=== PATIENT | female | born 1995 | race Caucasian/White ===

== ENCOUNTER 2017-08-28 09:43 | Emergency (ER) | payer OTHER ==
[2017-08-28] MEDS ORDERED: Silver Sulfadiazine 1%* 20 GM TOPICAL ONE (10:16)
[2017-08-28] MEDS ORDERED: HYDROcodone/ACETAMIN 5-325 MG* 1 TAB PO ONE (10:38)
[2017-08-28 12:24] VITALS: BP 123/71
--- NOTE | 2017-08-28 14:55 | ED ---
Burn - HPI Summary HPI Summary: Patient is a 21-year-old female brought in by ambulance after she sustained a burn to the right ventral side of the upper arm and forearm. Endorses 9/10 pain , constant and burning. Symptoms aggravated with touch, alleviated with cold wet towels applied. She sustained an injury while working with 90 hot water pressure. She denies any other concerns at this time. She is tearful on arrival due to pain. - History of Current Complaint Chief Complaint: EDBurnSmokeInh Stated Complaint: RT FOREARM BURN Time Seen by Provider: 08/28/17 09:46 Hx Obtained From: Patient Occurred: Minutes Ago Length of Exposure: Minutes Onset Severity: Severe Current Severity: Moderate Pain Intensity: 8 Pain Scale Used: 0-10 Numeric Location: RUE Character: Scald Alleviating: Cool Soaks Associated Signs & Symptoms: Positive: Negative Occupational Injury: No - Allergy/Home Medications Allergies/Adverse Reactions: Allergies Allergy/AdvReac Type Severity Reaction Status Date / Time No Known Allergies Allergy Verified 08/28/17 12:03 PMH/Surg Hx/FS Hx/Imm Hx Previously Healthy: Yes - Immunization History Hx Pertussis Vaccination: No Immunizations Up to Date: Yes Infectious Disease History: Yes Infectious Disease History: Denies: Traveled Outside the [place] in Last 30 Days - Social History Occupation: Employed Full-time Lives: With Family Alcohol Use: None Hx Substance Use: No Substance Use Type: Reports: None Hx Tobacco Use: Yes Smoking Status (MU): Former Smoker Review of Systems Constitutional: Negative Negative: Fever, Chills, Fatigue, Skin Diaphoresis Negative: Palpitations, Chest Pain Negative: Shortness Of Breath, Cough Genitourinary: Negative Positive: no symptoms reported, see HPI Negative: Arthralgia Positive: Other - 4.5% BSA burn to the R forearm and upper arm Neurological: Negative All Other Systems Reviewed And Are Negative: Yes Physical Exam Triage Information Reviewed: Yes Vital Signs On Initial Exam: Initial Vitals Pulse Pulse Ox 68 100 08/28/17 09:51 08/28/17 09:51 Completion Of Physical Exam Limited Due To: Dementia Appearance: Positive: Well-Appearing, No Pain Distress Skin: Positive: Warm, Skin Color Reflects Adequate Perfusion, Other - 4.5% BSA burn to the R forearm and upper arm sparing the hand Head/Face: Positive: Normal Head/Face Inspection Eyes: Positive: EOMI, ALISON, Conjunctiva Clear Neck: Positive: Supple, No Lymphadenopathy Respiratory/Lung Sounds: Positive: Clear to Auscultation, Breath Sounds Present Cardiovascular: Positive: Normal, Pulses are Symmetrical in both Upper and Lower Extremities Musculoskeletal: Positive: Strength/ROM Intact Neurological: Positive: Speech Normal Psychiatric: Positive: Normal, Affect/Mood Appropriate AVPU Assessment: Alert Burn Calculation - Right Arm 9% Right Arm 2nd De - 4.5% - Total 2nd Deg Total: 5 Total % BSA: 5 - [place] Formula for Fluid Resuscitation Weight: 200 lb Total % BSA 2nd & 3rd Degree: 5 24 -Hour Fluid Replacement: 1814.4 Diagnostics - Vital Signs Vital Signs Temp Pulse Resp BP Pulse Ox 08/28/17 12:23 98.4 F 72 18 123/71 99 08/28/17 11:00 72 98 08/28/17 10:52 62 106/80 99 08/28/17 10:22 66 130/77 98 08/28/17 10:00 79 97 08/28/17 09:52 98.1 F 68 18 132/88 100 08/28/17 09:51 68 100 - Laboratory Lab Statement: Any lab studies that have been ordered have been reviewed, and results considered in the medical decision making process. Burn Course/Dx - Course Course Of Treatment: During the course of treatment, the patient is evaluated for a burn to the right upper and forearm. The burn covers for 4.5% of the BSA. Appears to be partial-thickness and superficial throughout with 3 blisters. Silvadene applied in the ED with loose coverage gauze wrapped. This burn does not seem to classify as severe for transfer or consult at this time as the burn is not circumferential, spares the hand and is covering slightly less than 4.5% BSA. However, the area does cover a major joint (R elbow) and patient is encouraged to return immediatley if she has symptoms of entrapment or unable to flex or extend at the joint. Pain management given. Follow up with surgery in 2-4 days to assure healing of wound. - Diagnoses Differential Diagnoses: Positive: Direct Contact Thermal Burn Provider Diagnosis: Scald burn Discharge - Sign-Out/Discharge Documenting (check all that apply): Discharge/Admit/Transfer - Discharge Plan Condition: Stable Disposition: HOME Prescriptions: oxyCODONE/Acetamin 10/325(NF) [Percocet 10/325 (NF)] 1 tab PO QID #16 tab MDD 4 Patient Education Materials: Second Degree Burn (ED) Referrals: Henry Maurer MD [Medical Doctor] - Additional Instructions: Silvadene Cream: Topical: Apply to a thickness of 1/16 inch once or twice daily; reapply as needed to areas where the cream is removed by patient activity as the burned area should be covered with cream at all times. Continue use until healing has occurred or the burn site is ready for grafting. Do not discontinue therapy if the possibility of infection exists unless a significant adverse reaction has occurred. Please follow up with surgery in 1-2 days. Hydrocodone up to every 4 hours as needed for pain - Billing Disposition and Condition Condition: STABLE Disposition: Home
== END 2017-08-28 12:23 | disposition home or self-care (01) ==
LOC: ED 09:43
DX: T22.211A Burn of second degree of right forearm, initial encounter (principal); T22.231A Burn of second degree of right upper arm, initial encounter; T31.0 Burns involving less than 10% of body surface; X12.XXXA Contact with other hot fluids, initial encounter; Y92.9 Unspecified place or not applicable; Z87.891 Personal history of nicotine dependence
CPT/HCPCS: 99282; A9270-GY